=== PATIENT | male | born 1975 | race Caucasian/White ===

== ENCOUNTER 2023-05-02 07:28 | Outpatient (CLI) | payer OTHER | END 2023-05-02 07:29 | disposition home or self-care (01) | LOC: BICMRI 07:28 | PROVIDERS: ATTEND Family Medicine | DX: S89.91XD Unspecified injury of right lower leg, subsequent encounter (principal); S86.911D Strain of unspecified muscle(s) and tendon(s) at lower leg level, right leg, subsequent encounter | CPT/HCPCS: 70210 ==